=== PATIENT | male | born 1955 | race Two or more races ===

== ENCOUNTER 2022-03-07 01:30 | Observation (INO) | payer OTHER ==
[2022-03-07 02:09] LABS: EOS % 2.8 % (0-4.5); HEMATOCRIT 40.2 % (35.4-49); HEMOGLOBIN 13.7 GM/dL (11.7-16.9); LYMPH % 21.2 % (8-40); MCH 29.5 pg (25.7-33.7); MCHC 34.1 g/dl (32.0-35.9); MEAN CELL VOLUME 86.6 fl (80-96); MEAN PLT VOLUME 10.9 fl (7.5-11.1); MONO % 10.3 % (3.8-10.2); NEUT % 64.7 % (42.8-82.8); PLATELET COUNT 186 10^3/uL (134-434); RBC 4.65 M/mm3 (4.00-5.60); WHITE BLOOD COUNT 7.1 K/mm3 (4.0-10.0)
[2022-03-07 02:32] LABS: CALCIUM 9.4 mg/dL (8.5-10.1); MAGNESIUM 2.9 mg/dL (1.8-2.4)
[2022-03-07 02:35] LABS: CREATININE 1.8 mg/dL (0.55-1.3); PHOSPHOROUS 5.1 mg/dL (2.5-4.9)
[2022-03-07 02:37] LABS: BILIRUBIN,TOTAL 0.6 mg/dL (0.2-1); TOT PROT 8.1 g/dl (6.4-8.2)
[2022-03-07] MEDS ORDERED: SODIUM CHLORIDE 0.9% 500 ML INFUS.BAG IV ONE (02:42)
[2022-03-07] MEDS ORDERED: TRIMETHOBENZAMIDE HCL 300 MG CAPSULE PO PRN (03:05)
[2022-03-07] MEDS ORDERED: SODIUM CHLORIDE 0.45% 1,000 ML IV SCH (04:00)
[2022-03-07 05:31] LABS: URINE APPEARANCE CLEAR; URINE BILIRUBIN NEGATIVE (NEGATIVE); URINE COLOR YELLOW; URINE GLUCOSE (UA) NEGATIVE (NEGATIVE); URINE KETONE NEGATIVE (NEGATIVE); URINE LEUK ESTERASE NEGATIVE (NEGATIVE); URINE NITRITE NEGATIVE (NEGATIVE); URINE PROTEIN TRACE (NEGATIVE); URINE UROBILINOGEN 0.2 mg/dL (0.2-1.0)
[2022-03-07] MEDS ORDERED: HEPARIN NA (PORCINE) 5,000 UNITS/ML 1ML VIAL ONE ×2 (06:21→14:28)
[2022-03-07] MEDS: HEPARIN NA (PORCINE) 5,000 UNITS/ML 1ML VIAL SQ SCH ×3 (06:26→22:30)
[2022-03-07 06:41] LABS: BASO % 0.9 % (0-2.0); EOS % 4.1 % (0-4.5); HEMATOCRIT 38.4 % (35.4-49); HEMOGLOBIN 12.8 GM/dL (11.7-16.9); LYMPH % 26.8 % (8-40); MCHC 33.2 g/dl (32.0-35.9); MEAN CELL VOLUME 87.4 fl (80-96); MONO % 8.4 % (3.8-10.2); NEUT % 59.8 % (42.8-82.8); PLATELET COUNT 163 10^3/uL (134-434); RBC 4.39 M/mm3 (4.00-5.60); RDW 13.3 % (11.9-15.9)
[2022-03-07 06:56] LABS: MAGNESIUM 2.7 mg/dL (1.8-2.4)
[2022-03-07 07:00] LABS: PHOSPHOROUS 3.6 mg/dL (2.5-4.9)
[2022-03-07] MEDS ORDERED: amLODIPine BESYLATE 5 MG TABLET (FP) ONE (09:55)
[2022-03-07] MEDS ORDERED: GABAPENTIN 300 MG CAPSULE ONE (09:55)
[2022-03-07] MEDS: GABAPENTIN 300 MG CAPSULE PO SCH ×2 (09:59→22:30)
[2022-03-07] MEDS: amLODIPine BESYLATE 5 MG TABLET (FP) PO SCH (09:59)
[2022-03-07] MEDS: SODIUM CHLORIDE 1,000 ML IV SCH ×2 (10:00→22:29)
[2022-03-07 10:19] LABS: ALBUMIN 3.8 g/dl (3.4-5.0); CALCIUM 9.2 mg/dL (8.5-10.1)
[2022-03-07 10:20] LABS: BLOOD UREA NITROGEN 54.4 mg/dL (7-18)
[2022-03-07 10:22] LABS: CREATININE 1.4 mg/dL (0.55-1.3)
[2022-03-07 10:24] LABS: BILIRUBIN,TOTAL 0.5 mg/dL (0.2-1)
[2022-03-07] MEDS: LORazepam 1 MG TABLET PO PRN (22:30)
[2022-03-07 23:03] VITALS: BMI 25.3
[2022-03-08] MEDS: HEPARIN NA (PORCINE) 5,000 UNITS/ML 1ML VIAL SQ SCH ×3 (05:54→21:18)
[2022-03-08 07:42] LABS: BASO % 0.8 % (0-2.0); HEMATOCRIT 34.7 % (35.4-49); HEMOGLOBIN 11.4 GM/dL (11.7-16.9); LYMPH % 36.2 % (8-40); MCH 28.9 pg (25.7-33.7); MCHC 32.8 g/dl (32.0-35.9); MEAN CELL VOLUME 88.1 fl (80-96); MONO % 8.1 % (3.8-10.2); NEUT % 47.9 % (42.8-82.8); PLATELET COUNT 155 10^3/uL (134-434); RBC 3.93 M/mm3 (4.00-5.60); RDW 13.5 % (11.9-15.9); WHITE BLOOD COUNT 6.5 K/mm3 (4.0-10.0)
[2022-03-08 07:44] LABS: ALBUMIN 3.2 g/dl (3.4-5.0)
[2022-03-08 07:45] LABS: BILIRUBIN,TOTAL 0.5 mg/dL (0.2-1); CALCIUM 8.4 mg/dL (8.5-10.1); MAGNESIUM 2.3 mg/dL (1.8-2.4)
[2022-03-08 07:46] LABS: PHOSPHOROUS 2.2 mg/dL (2.5-4.9)
[2022-03-08 07:48] LABS: BLOOD UREA NITROGEN 26.1 mg/dL (7-18); CREATININE 0.8 mg/dL (0.55-1.3)
[2022-03-08] MEDS ORDERED: NAPH,MB-DB/K PH,MBDB POWDER PACKET PO ONE (09:08)
[2022-03-08] MEDS: amLODIPine BESYLATE 5 MG TABLET (FP) PO SCH (09:43)
[2022-03-08] MEDS: GABAPENTIN 300 MG CAPSULE PO SCH ×2 (09:43→21:18)
[2022-03-08] MEDS: SODIUM CHLORIDE 1,000 ML IV SCH (12:02)
[2022-03-08] MEDS: NAPH,MB-DB/K PH,MBDB POWDER PACKET PO SCH ×2 (12:33→21:19)
[2022-03-08] MEDS ORDERED: SODIUM CHLORIDE 1,000 ML IV SCH (16:30)
[2022-03-08] MEDS: LORazepam 1 MG TABLET PO PRN (21:20)
[2022-03-09] MEDS: LORazepam 1 MG TABLET PO PRN ×2 (05:37→21:15)
[2022-03-09] MEDS: HEPARIN NA (PORCINE) 5,000 UNITS/ML 1ML VIAL SQ SCH ×3 (05:38→21:15)
[2022-03-09] MEDS ORDERED: NAPH,MB-DB/K PH,MBDB POWDER PACKET PO ONE (07:05)
[2022-03-09 08:00] LABS: EOS % 8.2 % (0-4.5); HEMATOCRIT 34.2 % (35.4-49); HEMOGLOBIN 11.7 GM/dL (11.7-16.9); LYMPH % 34.9 % (8-40); MCH 29.4 pg (25.7-33.7); MCHC 34.1 g/dl (32.0-35.9); MEAN CELL VOLUME 86.1 fl (80-96); MONO % 8.2 % (3.8-10.2); NEUT % 47.7 % (42.8-82.8); PLATELET COUNT 143 10^3/uL (134-434); RBC 3.98 M/mm3 (4.00-5.60); RDW 13.2 % (11.9-15.9); WHITE BLOOD COUNT 5.8 K/mm3 (4.0-10.0)
[2022-03-09 08:15] LABS: CALCIUM 8.3 mg/dL (8.5-10.1)
[2022-03-09 08:17] LABS: ALBUMIN 3.2 g/dl (3.4-5.0)
[2022-03-09 08:19] LABS: CREATININE 0.7 mg/dL (0.55-1.3); PHOSPHOROUS 2.5 mg/dL (2.5-4.9)
[2022-03-09] MEDS ORDERED: MAGNESIUM SULF 50% (8.12 MEQ/2 ML-1 GM VIAL) IVPB ONE (08:20)
[2022-03-09 08:21] LABS: BILIRUBIN,TOTAL 0.5 mg/dL (0.2-1)
[2022-03-09] MEDS: CITALOPRAM HYDROBROMIDE 20 MG TABLET PO SCH (10:21)
[2022-03-09] MEDS: GABAPENTIN 300 MG CAPSULE PO SCH ×2 (10:21→21:14)
[2022-03-09] MEDS: amLODIPine BESYLATE 5 MG TABLET (FP) PO SCH (10:21)
[2022-03-10] MEDS: HEPARIN NA (PORCINE) 5,000 UNITS/ML 1ML VIAL SQ SCH ×2 (05:36→14:31)
[2022-03-10] MEDS: amLODIPine BESYLATE 5 MG TABLET (FP) PO SCH (10:09)
[2022-03-10] MEDS: GABAPENTIN 300 MG CAPSULE PO SCH (10:10)
[2022-03-10] MEDS: CITALOPRAM HYDROBROMIDE 20 MG TABLET PO SCH (11:11)
[2022-03-10 14:55] VITALS: BP 118/76; PULSE 75; TEMP 98.7
== END 2022-03-10 14:40 | disposition other institution (70) ==
LOC: JER 01:30 → JERBED 02:43 → J4W 22:10
PROVIDERS: ADMIT Hospitalist; ATTEND Internal Medicine
PROC: 3E033GC Introduction of Other Therapeutic Substance into Peripheral Vein, Percutaneous Approach (ICD-10-PCS; principal; 2022-03-07)
PROC: 3E0337Z Introduction of Electrolytic and Water Balance Substance into Peripheral Vein, Percutaneous Approach (ICD-10-PCS; 2022-03-07)
DX: F11.23 Opioid dependence with withdrawal (principal); R94.31 Abnormal electrocardiogram [ECG] [EKG]; R79.89 Other specified abnormal findings of blood chemistry; N17.9 Acute kidney failure, unspecified; Z87.891 Personal history of nicotine dependence; I10 Essential (primary) hypertension; Z29.9 Encounter for prophylactic measures, unspecified; R74.01 Elevation of levels of liver transaminase levels; G89.29 Other chronic pain; B19.20 Unspecified viral hepatitis C without hepatic coma; F41.9 Anxiety disorder, unspecified; M54.9 Dorsalgia, unspecified
CPT/HCPCS: 36415; 76705-TC; 80053; 81003; 83735; 84100; 84105; 85025; 86704; 86705; 87086; 87340; 87517; 87811; 87902; 93005; 93010; 93306-TC; 96361; 96374; 96375; 99285-25; C9803-CS; G0378; J1644; U0003; U0005